=== PATIENT | male | born 1930 | race African-American/Black ===

== ENCOUNTER 2016-10-29 22:26 | Inpatient (IN) | payer MEDICARE ==
[~2016-10-29] VITALS: Ht 185.4 cm; Wt 83.7 kg
--- NOTE | ~2016-10-29 | PR ---
[place], [place] PROGRESS NOTE [facility]: [id number] UNIT #: [id number] ROOM: 422 DOCTOR: PARAM CENTENO MD,JJ BIRTHDATE: [birth year] DOS: 10/31/2016 PULMONARY PROGRESS NOTE SUBJECTIVE: The patient has been noted much better than yesterday. Denies symptoms of chest pain. The coughing has been noted mild for the patient without any sputum expectoration. Denies symptoms of abdominal pain. OBJECTIVE: VITAL SIGNS: For the patient, which have been recorded showed the temperature of the patient noted as normal. The respiratory rate of the patient recorded as 20, heart rate 85, blood pressure 120/82. Intake is 1320 mL. The pulse oxygen saturation on 4 L nasal cannula 92% saturation recorded. HEENT: Examination shows head was atraumatic. Eyes nonicterus. NECK: Supple. CARDIOVASCULAR SYSTEM: S1, S2 is audible. LUNGS: The patient was noted without any wheezing. Crackles for the patient noted still inspiratory diffuse in the lungs bilaterally. ABDOMEN: Soft and nontender. LABORATORY DATA: Culture of the sputum for patient, preliminary showing moderate growth of yeast. PT/INR for the patient noted 3.5, which is in therapeutic range today. CMP today, BUN 32, creatinine normal, glucose 148. Magnesium 2.5. CBC this morning, WBC count of 22.1, hemoglobin 13.2, hematocrit 40.7, platelet count of 181,000. The C-reactive protein was elevated at 30.2. Remaining workup, which has been ordered ____ interstitial lung disease was pending. IMPRESSION: 1. The patient who has been noted with severe acute hypoxic respiratory failure, possible chronic hypoxia as well. 2. 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 3. Severe acute sepsis for the patient with acute kidney injury for the patient which has been improving. 4. Essential hypertension. 5. Atrial fibrillation. 6. Therapeutic anticoagulation today with Coumadin. PLAN OF TREATMENT: Monitor culture results. Repeat chest x-ray in the morning. Continue the BiPAP for the patient as ordered. This morning, the patient is using oxygen supplementation. He is quite comfortable and transferred to telemetry floor. Followup with the workup for the patient's interstitial lung disease. Other supportive plan of management and care. Usual treatment, all other care. Monitoring anticoagulation level as well. [place], [place] PROGRESS NOTE NAME: MICHAEL COLBERT Mariano UNIT #: [id number] ROOM: 422 DOCTOR: PARAM CENTENO MD,JJ BIRTHDATE: [birth year] JJ VIRGEN MD CM:JUAN R [id number] JJ CENTENO MD 10/31/16 [id number] interface
--- NOTE | ~2016-10-29 | CON ---
[place], [place] REPORT OF CONSULTATION NAME: MICHAEL COLBERT UNIT #: [id number] ROOM: [place] [address] DOCTOR: CLAYTON JOSHI MD BIRTHDATE: [birth year] DOS: 11/01/2016 REASON FOR CONSULTATION: I was asked to evaluate this patient who had a sudden cardiopulmonary arrest, so really originally admitted for pulmonary problems and was scheduled to be discharged later today. The nursing staff found him unresponsive without pulse or blood pressure, and not breathing and a code. The initial evaluation confirmed that the patient was pulseless and not breathing, and he was immediately resuscitated with oxygen through a bag valve mask and cardiac compressions. When I arrived to evaluate the patient, the patient had no spontaneous respirations, no circulation and was unresponsive. His history reveals that he has lung disease and uses BiPAP at night. The nurse noted that the BiPAP mask was not on the patient's face. The nurse also told me that earlier in the evening, he was evaluated by the house staff because of an episode of severe shortness of breath and diaphoresis that came on suddenly and resolved quite quickly. He was also noted to be confused. When questioned by the house staff, he stated that he was fine and denied any pain. An EKG and cardiac enzymes reported as negative after that episode earlier in the evening. On examination, the patient was unresponsive. Pupils were mid size and nonreactive. There were no signs of injury around the face, neck, or scalp. The torso was without ecchymotic areas or wounds. The extremities trace of edema. Skin was warm and dry. Hand bag valve ventilation continued by the respiratory therapist. The adon showed bradycardia, but no palpable pulses were appreciated. He was intubated with a size 8 tube by direct visualization of the cords. The tube passed through the cords, missed in the tube and tidal CO2 was positive. Breath sounds were heard on both sides of the chest and no breath sounds were heard over the epigastrium. Cardiac compressions continued throughout. He was given atropine for bradycardia epinephrine and Levophed infusion after circulation resumed. Blood pressure with Levophed was 140/80 mmHg, and I recommended to the house staff that the Levophed be reduced slightly in rate. Mechanical ventilation with assist control 10 breaths per minute, tidal volume 650 mL, and 100% oxygen with PEEP at 5 cm. Chest x-ray interpreted by me showed normal bony thorax, normal mediastinum. Moderately enlarged cardiac profile and bilateral alveolar infiltrates consistent with acute pulmonary edema. It is unclear if this is new or it is being present earlier in the day when he had the episode of diaphoresis and increased shortness of breath. Serum chemistry and troponin along with arterial blood gases were ordered and those results were pending. Family was contacted by the house staff and advised the severity of the patient's condition. DIAGNOSES: Acute cardiopulmonary arrest, successful resuscitation. The patient transferred to the ICU and information given to the nursing staff and house staff. CONDITION: Critical. [place], [place] REPORT OF CONSULTATION NAME: MICHAEL COLBERT UNIT #: [id number] ROOM: [place] [address] DOCTOR: CLAYTON JOSHI MD BIRTHDATE: [birth year] CLAYTON JOSHI MD CM:CONSTR:REPORT OF CONSULTATION 11/01/16 0746 interface
--- NOTE | ~2016-10-29 | CON ---
[place], [place] REPORT OF CONSULTATION [id number] UNIT #: [id number] ROOM: 422 DOCTOR: PARAM CENTENO MDJJ BIRTHDATE: [birth year] DOS: 10/30/2016 PULMONARY CONSULTATION EVALUATION AND MANAGEMENT CONSULTATION REQUESTED BY: Hospitalist services for assessment of acute respiratory failure. HISTORY OF PRESENT ILLNESS: This is an 86-year-old -[place] male. The patient is somewhat poor historian. The patient presented to the hospital. The patient was noted with symptoms of having increased shortness of breath for this patient that started for the patient 24 hours ago. The patient was also noted symptoms of coughing, which has been noted with intermittent sputum expectorations for about one month. The symptoms have been noted progressively worsening. He denies symptoms of chest pain, not sure about wheezing. Denies any symptoms of hemoptysis. The patient presented to the Emergency Room. The patient's chest x-ray showed bilateral diffuse pulmonary infiltration. It was also noticed severe hypoxia and hypoxemia. Oxygen saturation, pulse oximetry was noted only 60%. The patient started on oxygen supplementation initially, and later on he has been started on the BiPAP. The patient setting was 12/6 that resulted improvement in the oxygen saturation. This morning as the patient was seen, he was still using the BiPAP and able to assist me in the history. REVIEW OF SYSTEMS: CONSTITUTIONAL SYMPTOMS: The patient denies symptoms of fever or chills. Complains of tiredness. EYES: Denies any burning, redness, or tenderness. EARS, NOSE, THROAT SYMPTOMS: No sore throat, hoarseness, otalgia, postnasal drainage. CARDIOVASCULAR SYSTEM: Denies anginal pain, edema or pain of the lower extremities. GASTROINTESTINAL SYMPTOMS: Denies dysphagia, nausea, vomiting, diarrhea, abdominal pain, hematemesis, melena, or abnormal weight loss history. GENITOURINARY SYMPTOMS: Denies dysuria, suprapubic pain, hematuria. MUSCULOSKELETAL SYMPTOMS: Denies acute joint pain, redness, or tenderness. CENTRAL NERVOUS SYSTEM SYMPTOMS: Denies dizziness, headache, diplopia or syncopal episodes. Remaining systems were reviewed with the patient, they were noted all negative. PAST MEDICAL HISTORY: The patient has been noted with: 1. History of chronic atrial fibrillation. 2. Chronic kidney disease. 3. Hypertension. SOCIAL HISTORY: The patient stated that he is , lives at home. He has been noted with tobacco use, about a pack of cigarettes per day that was discontinued 30 years ago. He has worked in the [employer] for 20 plus years with significant inhalation of the dust. Denies any history of chronic alcohol use or illicit drug use. [place], [place] REPORT OF CONSULTATION NAME: MICHAEL COLBERT UNIT #: [id number] ROOM: [facility] DOCTOR: JJ FOFANA MD BIRTHDATE: [birth year] FAMILY HISTORY: Essentially not known to the patient. HOME MEDICATIONS: Noted use of recent prescription of Augmentin, Alphagan eye drops, multivitamin, Rythmol, and Coumadin. DRUG ALLERGY HISTORY: REPORTED ALLERGY TO THE IVP DYE. PHYSICAL EXAMINATION: GENERAL: This is an 86-year-old white male who has been noted currently awake and alert without any distress. Height of the patient recorded as 6 feet 1 inch, weight of 183 pounds. BMI 24.1. VITAL SIGNS: Temperature 99.8 degrees Fahrenheit to normal temperature, respiratory rate 22-14, heart rate 113-75, blood pressure 116/74-149/83. Pulse oxygen saturation of the patient recorded on 2 L nasal cannula 68% saturation, on room air 62%, 15 liters nonrebreather mask with patient 95% with the BiPAP currently on 50% and then later reported percentage 98% saturation recorded. HEENT: Edentulous status. Head was atraumatic. Eyes nonicterus. NECK: Supple. Dry oral mucosa. CARDIOVASCULAR SYSTEM: S1, S2 audible. LUNGS: The patient was noted without any wheezing. Crackles noted, coarse in the lungs bilaterally. ABDOMEN: Flat, soft, nontender. EXTREMITIES: No edema, clubbing or cyanosis. CENTRAL NERVOUS SYSTEM: The patient shows no gross focal deficit, unable to follow further instructions to perform the rest of central nervous examination. SKIN: Showed no lesions or rashes. MUSCULOSKELETAL SYMPTOMS: No deformities. LABORATORY DATA: CMP of the patient labs on admission on 10/29/2016 for this patient; glucose 230, BUN 20, creatinine 1.71. The magnesium was 2.3. Troponin 0.270 minimally elevated. CBC on admission, WBC count 17.7, hemoglobin 14.2, hematocrit 44.2, platelet count of 192,000. Arterial blood gas pH of 7.46, pCO2 of 30, pO2 of 53 for the patient on 50% Venturi mask. PT/INR yesterday on admission 3.6, mildly about therapeutic range. Lactic acid 3.3 yesterday on admission, and followup lactic acid 1.4. Influenza A and B, nasal washing antigen for the patient this morning was negative. CMP repeated this morning, glucose 207, BUN 23, creatinine 1.7, calcium was 8.0, albumin 2.2. PT/INR today was 3.5, PTT 51. CBC this morning, WBC count 13.4, hemoglobin 13.8, hematocrit 42.8, platelet count 174,000. Another arterial blood gas that was done on the BiPAP this morning in the setting of 07/03, pH of 7.42, pCO2 of 38.2, pO2 of 98.6 with 45% oxygen supplementation. The echocardiogram for the patient was completed with pending results. A chest x-ray of the patient that was done on 10/29/2016 shows bilateral diffuse pulmonary infiltration. CT scan of the chest, which was done without contrast was personally reviewed for the patient shows evidence of honeycombing for this patient subpleural interstitial pulmonary fibrosis for the patient was noted with possibly superimposed addition of pulmonary infiltration would be considered. There was no significant lymphadenopathy noted. There were no pleural effusions. The only last chest x-ray the patient could be compared with for this patient the current finding of the patient was reviewed with the patient that was done for the patient in this [place], [place] REPORT OF CONSULTATION NAME: MICHAEL COLBERT Mariano UNIT #: [id number] ROOM: 422 DOCTOR: PARAM CENTENO MD,[facility] BIRTHDATE: [birth year] hospital in the past of 03/26/2013 does show evidence of a pulmonary fibrosis, which is not as severe noted on current new chest x-ray. IMPRESSION: 1. Underlying pulmonary fibrosis. The patient was noted with possibility of occupation-related pulmonary fibrosis of the patient with silicosis to be considered along with the findings which were noted classically pattern of honeycombing, highly consistent with idiopathic pulmonary fibrosis. 2. The patient with most likely chronic hypoxia for this patient would be considered nondetected because of underlying interstitial lung disease with current acute hypoxic respiratory failure superimposed secondary to acute bacterial infection. 3. Acute severe sepsis was noted on admission with acute kidney dysfunction as well. Tachycardia seemed to responding to treatment, lactic acidosis has been resolved. 4. History of essential hypertension. 5. History of atrial fibrillation for the patient noted current with rapid ventricular response for the patient seemed to be improving at this time. PLAN OF TREATMENT: Collect the sputum for Gram stain and culture. Continue current antibiotic for the patient's community-acquired infection, gram-positive coverage and atypical infection. Bronchodilators will be continued. Avoid further excessive fluid therapy of the patient to prevent any fluid overload. Bronchodilators for the patient could be given for this patient to help mobilize the secretions. Monitor respiratory status, other vital organ of patient including kidney functions closely. Usual care. All other supportive plan of management and therapies. Further treatment changes will be done based on progression of the illness. Repeat another chest x-ray in a couple of days to reassess the progression of the pneumonia. Obtain urine for legionella antigen, the patient's blood for mycoplasma antigen for the community-acquired infection as well. Interstitial disease workup for the patient has been ordered as well. Further treatment changes will be done based on the progression of the illness. DVT prophylaxis will be continued for the patient in the form of the anticoagulation, which is already taken by the patient as Coumadin. The INR was noted mildly elevated on admission, currently noted as normal. Continue use of the BiPAP for the patient for the management of the respiratory failure, most of the time except for meals. Thanks for allowing me to participate in the care of this patient. [place], [place] REPORT OF CONSULTATION NAME: MICHAEL COLBERT Mariano UNIT #: [id number] ROOM: 422 DOCTOR: JJ FOFANA MD BIRTHDATE: [birth year] JJ VIRGEN MD CM:CONSTR:REPORT OF CONSULTATION 1222 10/31/16 0713 interface
[~2016-10-29 22:26] MED LIST: ALPHAGAN-P 0.2%5 ML OPH; AMLODIPINE BES2.5 MG PO; ASPIRIN325 MG PO; AUGMENTIN 875 M1 TA1 PO; B12,B-12,B 12500 MC1 PO; COUMADIN2 MG PO; COUMADIN3 M1 PO; MULTIVITAMIN1 TA1 PO; PROPAFENONE HC225 MG PO; [UNRECOGNIZED DRUG - OTHER] OPH
[2016-10-29 22:35] VITALS: BP 141/90
[2016-10-29 22:52] VITALS: BP 149/83
[2016-10-29 23:09] LABS: HEMATOCRIT 44.2 % (42.0-52.0); HEMOGLOBIN 14.2 g/dl (14.0-18.0); MEAN CELL VOLUME 99.1 fl (80.0-94.0); MEAN CORPUSCULAR HGB 31.8 pg (27.0-31.0); MEAN CORPUSCULAR HGB CONC 32.1 g/dl (33.0-37.0); MEAN PLATELET VOLUME 12.2 fl (9.6-12.3); PLATELET COUNT AUTOMATED 192 10*3/uL (130-400); RED BLOOD COUNT 4.46 10*6/uL (4.50-5.90); RED CELL DISTRI WIDTH 13.4 % (0-14.5); WHITE BLOOD COUNT 17.7 10*3/uL (4.8-10.8)
[2016-10-29 23:15] VITALS: BP 114/71
[2016-10-29 23:18] LABS: INTERNATIONAL NORM RATIO 3.6 (2.0-3.5); PROTHROMBIN TIME 40.8 SECONDS (9.0-12.4)
[2016-10-29 23:25] LABS: ABG BASE EXCESS -0.4 mmol/L (-2.0-2.0); ABG HCO3 22.1 mmol/l (22-26); ARTERIAL BLOOD GAS PH 7.465 (7.35-7.45)
[2016-10-29 23:26] LABS: ALBUMIN 2.4 gm/dl (3.1-4.5); BILIRUBIN, TOTAL 0.9 mg/dl (0.2-1.0); LYMPHOCYTE # 0.4 10*3/uL (1.3-4.4); MAGNESIUM 2.3 mg/dL (1.5-2.1); MONOCYTE # 0.7 10*3/uL (0.1-1.0); NEUTROPHIL # 16.6 10*3/uL (2.3-7.9); NEUTROPHILS 94 % (47-73); POTASSIUM 4.4 mmol/L (3.5-5.1); TOTAL CELLS COUNTED 100 #CELLS; TOTAL PROTEIN 8.2 gm/dL (6.4-8.2)
[2016-10-29 23:27] LABS: PLATELET SUFFICIENCY NORMAL (NORMAL); POLYCHROMASIA SLIGHT
[2016-10-29 23:32] LABS: TROPONIN I 0.27 ng/ml (<0.045)
[2016-10-29 23:54] VITALS: BP 111/71
[2016-10-30] VITALS (7 sets, daily range): BP systolic 103–138; BP diastolic 59–91
[2016-10-30 01:06] LABS: LA>2 REFLEX 2 HR DRAW NOW
[2016-10-30 01:54] LABS: BILIRUBIN NEGATIVE (NEGATIVE); BLOOD 1+ (NEGATIVE); CLARITY CLEAR (CLEAR); COLOR YELLOW (YELLOW); GLUCOSE NEGATIVE (NEGATIVE); KETONE NEGATIVE (NEGATIVE); LEUKO ESTERASE NEGATIVE (NEGATIVE); NITRITE NEGATIVE (NEGATIVE); PH 5.5 (5.0-9.0); PROTEIN TRACE (NEGATIVE); SPECIFIC GRAVITY 1.015 (1.005-1.030)
[2016-10-30 02:02] LABS: BACTERIA TRACE; URINE REFLEX COMMENT YES (NO)
[2016-10-30 06:22] LABS: HEMATOCRIT 42.8 % (42.0-52.0); HEMOGLOBIN 13.8 g/dl (14.0-18.0); MEAN CELL VOLUME 98.6 fl (80.0-94.0); MEAN CORPUSCULAR HGB 31.8 pg (27.0-31.0); MEAN CORPUSCULAR HGB CONC 32.2 g/dl (33.0-37.0); MEAN PLATELET VOLUME 12.2 fl (9.6-12.3); PLATELET COUNT AUTOMATED 174 10*3/uL (130-400); RED BLOOD COUNT 4.34 10*6/uL (4.50-5.90); RED CELL DISTRI WIDTH 13.4 % (0-14.5); WHITE BLOOD COUNT 13.4 10*3/uL (4.8-10.8)
[2016-10-30 06:30] LABS: HEMOGLOBIN A1c 6.6 % (4.8-5.6)
[2016-10-30 06:36] LABS: TROPONIN I 0.336 ng/ml (<0.045)
[2016-10-30 06:48] LABS: ALBUMIN 2.2 gm/dl (3.1-4.5); BILIRUBIN, TOTAL 0.5 mg/dl (0.2-1.0); CHOLESTEROL 97 mg/dL (<200); FREE T4 1.44 ng/dl (0.76-1.46); HDL CHOLESTEROL 43 mg/dl (40-60); LDL CHOLESTEROL 43 mg/dL (9-159); MAGNESIUM 2.5 mg/dL (1.5-2.1); PHOSPHOROUS 2.5 mg/dL (2.5-4.9); POTASSIUM 4.6 mmol/L (3.5-5.1); TOTAL PROTEIN 7.8 gm/dL (6.4-8.2); TRIGLYCERIDES 54 mg/dl (<150); VLDL CHOLESTEROL 11 mg/dL (6-40)
[2016-10-30 06:53] LABS: INTERNATIONAL NORM RATIO 3.5 (2.0-3.5); PROTHROMBIN TIME 40.1 SECONDS (9.0-12.4); THYROID STIM HORMONE (HS) 0.404 uIU/ml (0.358-4.75)
[2016-10-30 06:56] LABS: LYMPHOCYTE # 0.5 10*3/uL (1.3-4.4); NEUTROPHIL # 12.9 10*3/uL (2.3-7.9); NEUTROPHILS 96 % (47-73); PLATELET SUFFICIENCY NORMAL (NORMAL); TOTAL CELLS COUNTED 100 #CELLS
[2016-10-30 07:52] LABS: FOLIC ACID 7.08 ng/mL (>5.38)
[2016-10-30 08:01] LABS: ABG CO2 CONTENT 26.4 mmol/L (23-27); ABG HCO3 25.2 mmol/l (22-26); ABG TEMPERATURE 96.6 F (98.0-99.0); ARTERIAL BLOOD GAS PH 7.427 (7.35-7.45); ARTERIAL BLOOD GAS PO2 98.6 mmHg (80-90)
[2016-10-30] MEDS ORDERED: AMLODIPINE BES1 TA1 PO (09:52)
[2016-10-30 12:32] LABS: TROPONIN I 0.224 ng/ml (<0.045)
[2016-10-30 17:56] LABS: TROPONIN I 0.152 ng/ml (<0.045)
[2016-10-31] VITALS: BP 107/65
[2016-10-31 05:55] LABS: ALKALINE PHOSPHATASE 101 U/L (45-117); BILIRUBIN, TOTAL 0.3 mg/dl (0.2-1.0); BUN 32 mg/dl (7-24); CARBON DIOXIDE 29 mmol/L (21-32); CHLORIDE 104 mmol/L (98-107); EST GLOM FILT AFRICAN AMERICAN > 60 ml/min; GLUCOSE 148 mg/dL (65-99); MAGNESIUM 2.5 mg/dL (1.5-2.1); PHOSPHOROUS 3.1 mg/dL (2.5-4.9); POTASSIUM 4.2 mmol/L (3.5-5.1); SGOT/AST 39 IU/L (3-35); SGPT/ALT 27 U/L (12-78); SODIUM 142 mmol/L (136-145); TOTAL PROTEIN 7.2 gm/dL (6.4-8.2)
[2016-10-31 05:58] LABS: BASO % 0.1 % (0.0-1.0); HEMATOCRIT 40.7 % (42.0-52.0); HEMOGLOBIN 13.2 g/dl (14.0-18.0); IG # 0.2 10*3/uL (0.0-0.1); LYMPH # 1.2 10*3/uL (1.3-4.4); LYMPH % 5.3 % (27.0-41.0); MEAN CELL VOLUME 98.5 fl (80.0-94.0); MEAN CORPUSCULAR HGB CONC 32.4 g/dl (33.0-37.0); MEAN PLATELET VOLUME 12.4 fl (9.6-12.3); MONO # 1.4 10*3/uL (0.1-1.0); MONO % 6.3 % (3.0-9.0); NEUT # 19.3 10*3/uL (2.3-7.9); NEUT % 87.4 % (47.0-73.0); PLATELET COUNT AUTOMATED 188 10*3/uL (130-400); RED BLOOD COUNT 4.13 10*6/uL (4.50-5.90); RED CELL DISTRI WIDTH 13.6 % (0-14.5); WHITE BLOOD COUNT 22.1 10*3/uL (4.8-10.8)
[2016-10-31 06:19] LABS: INTERNATIONAL NORM RATIO 3.5 (2.0-3.5); PROTHROMBIN TIME 40.1 SECONDS (9.0-12.4)
[2016-10-31 08:00] VITALS: BP 120/82
[2016-10-31 09:07] LABS: IMMUNOGLOBULIN IgE 002170 233 IU/mL (0-100); RHEUMATOID ARTHRITIS FACTOR 19.8 IU/mL (0.0-13.9)
[2016-10-31 12:00] VITALS: BP 113/65
[2016-10-31 14:11] LABS: ANGIOTENSIN-CONVERTING ENZYME 19 U/L (14-82)
[2016-10-31 16:00] VITALS: BP 126/78
[2016-10-31 16:09] LABS: IGG SUBCLASS 1 1110 mg/dL (422-1292); IGG SUBCLASS 2 456 mg/dL (117-747); IGG SUBCLASS 3 89 mg/dL (41-129); IGG SUBCLASS 4 100 mg/dL (1-291)
[2016-10-31 20:00] VITALS: BP 107/67
[2016-11-01] VITALS: BP 128/82; BP 167/93
[2016-11-01 01:53] LABS: HEMATOCRIT 43.2 % (42.0-52.0); HEMOGLOBIN 13.5 g/dl (14.0-18.0); MEAN CORPUSCULAR HGB 31.8 pg (27.0-31.0); MEAN CORPUSCULAR HGB CONC 31.3 g/dl (33.0-37.0); MEAN PLATELET VOLUME 12.2 fl (9.6-12.3); NUCLEATED RED BLOOD CELL 0.1 % (0.0-0.0); PLATELET COUNT AUTOMATED 166 10*3/uL (130-400); RED BLOOD COUNT 4.24 10*6/uL (4.50-5.90); RED CELL DISTRI WIDTH 13.9 % (0-14.5); WHITE BLOOD COUNT 21.1 10*3/uL (4.8-10.8)
[2016-11-01 02:00] VITALS: BP 128/82
[2016-11-01 02:00] LABS: MEAN CELL VOLUME 101.9 fl (80.0-94.0)
[2016-11-01 02:10] LABS: ALBUMIN 1.9 gm/dl (3.1-4.5); BILIRUBIN, TOTAL 0.7 mg/dl (0.2-1.0); MAGNESIUM 2.8 mg/dL (1.5-2.1); POTASSIUM 4.2 mmol/L (3.5-5.1); TOTAL PROTEIN 6.8 gm/dL (6.4-8.2)
[2016-11-01 02:15] VITALS: BP 110/60
[2016-11-01 02:15] LABS: ATYPICAL LYMPHS 1 % (0-0); LYMPHOCYTE # 2.5 10*3/uL (1.3-4.4); METAMYELOCYTES 1 % (0-0); MONOCYTE # 1.5 10*3/uL (0.1-1.0); NEUTROPHIL # 16.9 10*3/uL (2.3-7.9); NEUTROPHILS 80 % (47-73); PLATELET SUFFICIENCY NORMAL (NORMAL); TOTAL CELLS COUNTED 100 #CELLS
[2016-11-01 02:16] LABS: POLYCHROMASIA SLIGHT
[2016-11-01 02:30] VITALS: BP 75/43
[2016-11-01 02:35] LABS: ABG BASE EXCESS -3.8 mmol/L (-2.0-2.0); ABG CO2 CONTENT 21.8 mmol/L (23-27); ABG HCO3 20.6 mmol/l (22-26); ABG TEMPERATURE 98.1 F (98.0-99.0); ARTERIAL BLOOD GAS PH 7.364 (7.35-7.45)
[2016-11-01 02:45] VITALS: BP 90/60
[2016-11-01 03:00] VITALS: BP 76/56
[2016-11-01 03:50] LABS: LA>2 REFLEX 2 HR DRAW NOW
== END 2016-11-01 06:05 | disposition expired | DRG 871 ==
LOC: ED 22:26 → EDHOLD 10-30 00:28 → ICCU 10-30 00:28 → 4E 10-30 18:51 → ICCU 11-01 01:54
PROVIDERS: Emergency Medicine Emergency Medical Services; Internal Medicine; Internal Medicine Critical Care Medicine; Student in an Organized Health Care Education/Training Program
DX: A41.9 Sepsis, unspecified organism (principal); E43 Unspecified severe protein-calorie malnutrition; J96.01 Acute respiratory failure with hypoxia; J18.9 Pneumonia, unspecified organism; N17.9 Acute kidney failure, unspecified; D68.9 Coagulation defect, unspecified; D68.59 Other primary thrombophilia; J84.10 Pulmonary fibrosis, unspecified; I48.0 Paroxysmal atrial fibrillation; Z66 Do not resuscitate; I12.9 Hypertensive chronic kidney disease with stage 1 through stage 4 chronic kidney disease, or unspecified chronic kidney disease; T45.515A Adverse effect of anticoagulants, initial encounter; R73.9 Hyperglycemia, unspecified; R65.20 Severe sepsis without septic shock; D53.9 Nutritional anemia, unspecified; N18.3 Chronic kidney disease, stage 3 (moderate); Z88.7 Allergy status to serum and vaccine; Z91.012 Allergy to eggs; Z91.041 Radiographic dye allergy status; Z79.899 Other long term (current) drug therapy; Z68.24 Body mass index [BMI] 24.0-24.9, adult; I46.9 Cardiac arrest, cause unspecified; Z51.5 Encounter for palliative care